=== PATIENT | female | born 1935 | race Two or more races ===

== ENCOUNTER 2019-09-16 16:55 | Inpatient (IN) | payer OTHER ==
[~2019-09-16] VITALS: Ht 157.5 cm; Wt 69.0 kg
[2019-09-16] MEDS ORDERED: SODIUM CHLORIDE 0.9% 500 ML IV ONE (17:24)
[2019-09-16] MEDS ORDERED: InsuLIN REG 1unit/0.01ml Soln (100units/ml) IV ONE (17:45)
[2019-09-16 17:51] LABS: Basophils # (auto) 0 10 ^3/uL (0-0.2); Basophils % (auto) 0.4 % (0.0-2.0); Eosinophils # (auto) 0 10 ^3/uL (0-0.8); Eosinophils % (auto) 0.1 % (0.0-7.0); Hematocrit 45.5 % (36.0-46.0); Hemoglobin 15.3 g/dL (12.2-16.2); Lymphocytes # (auto) 0.4 10 ^3/uL (0.4-5.4); Lymphocytes % (auto) 5.2 % (10.0-50.0); Mean Corpuscular Hemoglobin 32.2 pg (28.0-32.0); Mean Corpuscular Hgb Conc. 33.7 g/dL (32.0-36.0); Mean Corpuscular Volume 95.6 fL (80.0-100.0); Monocytes # (auto) 0.7 10 ^3/uL (0-1.3); Monocytes % (auto) 9.5 % (0.0-12.0); Neutrophils # (auto) 6.6 10 ^3/uL (1.6-8.6); Neutrophils % (auto) 84.8 % (37.0-80.0); Nucleated Red Blood Cells % 0.1 %; Platelet Count (auto) 242 10^3/uL (140-450); Red Blood Cells 4.76 10^6/uL (4.0-5.20); White Blood Cell 7.8 10^3/uL (4.4-10.8)
[2019-09-16 18:07] LABS: Albumin 2.5 g/dL (3.4-5.0); Anion Gap 7 (5-15); Blood Urea Nitrogen 29 mg/dL (7-18); Calcium 8.9 mg/dL (8.5-10.1); Carbon Dioxide 26 mmol/L (21-32); Chloride 96 mmol/L (98-107); Magnesium 2.2 mg/dL (1.6-2.6); Potassium 4.5 mmol/L (3.5-5.1); Sodium 129 mmol/L (136-145)
[2019-09-16 18:12] LABS: Alanine Aminotransferase 21 U/L (13-56); Aspartate Aminotransferase 20 U/L (15-37); BUN/Creatinine Ratio 26.6; Bilirubin, Total 0.9 mg/dL (0.2-1.0); GFR African American 61 mL/min; GFR Non-African American 51 mL/min; Total Protein 6.9 g/dL (6.4-8.2)
[2019-09-16 18:16] LABS: Alkaline Phosphatase 132 U/L (45-117)
[2019-09-16 18:34] LABS: Glucose 533 mg/dL (74-106)
[2019-09-16] MEDS ORDERED: DEXTROSE (50%) 50ML SYRG IV PRN (19:45)
[2019-09-16] MEDS ORDERED: NITROGLYCERIN 0.4 MG SL TAB SL PRN (19:45)
[2019-09-16] MEDS ORDERED: ACETAMINOPHEN 500 MG TAB PO PRN (19:45)
[2019-09-16] MEDS ORDERED: HYDROcodone-ACET 5/325MG TAB PO PRN (19:45)
[2019-09-16] MEDS ORDERED: MORPHINE SULF INJ 2 MG/ML SYRINGE 1ML IV PRN ×2 (19:45)
[2019-09-16] MEDS ORDERED: ONDANSETRON HCL 4 MG/2 ML VIAL IV PRN (19:45)
[2019-09-16 20:13] LABS: Cholesterol 91 mg/dL (< 200)
[2019-09-16 20:14] LABS: Urine WBC None Seen /hpf (0 - 5)
[2019-09-16 20:15] LABS: HDL Cholesterol 38 mg/dL (40-59); LDL Cholesterol 38 mg/dL (< 100); Triglycerides 103 mg/dL (< 150)
[2019-09-16] MEDS: SODIUM CHLORIDE 0.9% 1,000 ML IV SCH (20:18)
[2019-09-16] MEDS: cefTRIAXone 1GM/50ML D5W 50 ML IV SCH (20:18)
[2019-09-16 20:29] LABS: Urine Bacteria NONE SEEN /hpf (None Seen); Urine Blood Negative /uL (Negative); Urine Specific Gravity 1.032 (1.001-1.035)
[2019-09-16 21:15] VITALS: BP 150/90
[2019-09-16 22:00] VITALS: BP 150/91
[2019-09-16] MEDS ORDERED: ATORVASTATIN 20 MG TAB PO SCH (22:00)
[2019-09-16] MEDS: APIXABAN 2.5 MG TAB PO SCH (22:03)
[2019-09-16] MEDS: METOPROLOL TARTRATE 25 MG TAB PO SCH (22:03)
[2019-09-16] MEDS: AZITHROMYCIN 500MG/ 250ML 250 ML IV SCH (22:04)
[2019-09-16] MEDS: ACCU-CHEK COMFORT CURVE STRIP VI SCH (22:04)
[2019-09-16] MEDS: InsuLIN REG 1unit/0.01ml Soln (100units/ml) SC SCH (22:11)
[2019-09-16] MEDS ORDERED: LEVO100T8 PO (22:20)
[2019-09-16] MEDS ORDERED: ATOR40TA52 PO (22:20)
[2019-09-16] MEDS ORDERED: METO25TA93 PO (22:20)
[2019-09-16] MEDS ORDERED: APIX2.5T PO (22:20)
[2019-09-16] MEDS ORDERED: LOSA-39 PO (22:20)
[2019-09-16] MEDS ORDERED: AMLO5TAB15 PO (22:20)
[2019-09-16] MEDS ORDERED: FLEC50TA15 PO (22:20)
[2019-09-17 04:50] VITALS: BP 150/91
[2019-09-17 05:00] VITALS: BP 130/50
[2019-09-17] MEDS: SODIUM CHLORIDE 0.9% 1,000 ML IV SCH (05:45)
[2019-09-17 06:05] LABS: Basophils # (auto) 0 10 ^3/uL (0-0.2); Basophils % (auto) 0.5 % (0.0-2.0); Eosinophils # (auto) 0.1 10 ^3/uL (0-0.8); Eosinophils % (auto) 0.8 % (0.0-7.0); Hemoglobin 13.4 g/dL (12.2-16.2); Lymphocytes # (auto) 0.6 10 ^3/uL (0.4-5.4); Lymphocytes % (auto) 7.2 % (10.0-50.0); Mean Corpuscular Hemoglobin 32.5 pg (28.0-32.0); Mean Corpuscular Hgb Conc. 34.4 g/dL (32.0-36.0); Mean Corpuscular Volume 94.5 fL (80.0-100.0); Monocytes # (auto) 0.7 10 ^3/uL (0-1.3); Monocytes % (auto) 8.7 % (0.0-12.0); Neutrophils # (auto) 7.1 10 ^3/uL (1.6-8.6); Neutrophils % (auto) 82.8 % (37.0-80.0); Platelet Count (auto) 233 10^3/uL (140-450); Red Blood Cells 4.12 10^6/uL (4.0-5.20); Red Cell Distribution Width 12.7 % (11.8-14.3); White Blood Cell 8.6 10^3/uL (4.4-10.8)
[2019-09-17] MEDS: ACCU-CHEK COMFORT CURVE STRIP VI SCH ×2 (06:16→11:47)
[2019-09-17] MEDS: InsuLIN REG 1unit/0.01ml Soln (100units/ml) SC SCH ×2 (06:16→11:48)
[2019-09-17 06:25] LABS: BUN/Creatinine Ratio 22.4; Calcium 8.2 mg/dL (8.5-10.1); Potassium 3.7 mmol/L (3.5-5.1)
[2019-09-17] MEDS: IPRATROPIUM BROM 0.5 MG/2.5ML INH SOL NEB SCH ×2 (06:26→11:58)
[2019-09-17] MEDS: ALBUTEROL SULF 2.5 MG/0.5ML(0.5%) NEB SOLN NEB SCH ×2 (06:26→11:58)
[2019-09-17 08:50] VITALS: BP 142/67
[2019-09-17] MEDS: AZITHROMYCIN 500MG/ 250ML 250 ML IV SCH (09:54)
[2019-09-17] MEDS: APIXABAN 2.5 MG TAB PO SCH (09:54)
[2019-09-17] MEDS: cefTRIAXone 1GM/50ML D5W 50 ML IV SCH (09:54)
[2019-09-17] MEDS: METOPROLOL TARTRATE 25 MG TAB PO SCH (09:55)
[2019-09-17] MEDS ORDERED: FAMOTIDINE 20 MG TAB PO SCH (10:00)
[2019-09-17 13:00] VITALS: BP 129/52
[2019-09-17] MEDS ORDERED: DOXYCYCLINE 100 MG TAB/CAP PO SCH (13:00)
[2019-09-17] MEDS ORDERED: INSULIN LANTUS (GLARGINE) 1 /0.01ml (100units/ml) SC SCH (13:00)
[2019-09-17] MEDS ORDERED: INSU100I44 SC (13:05)
[2019-09-17] MEDS ORDERED: BLOO-200 XX (13:05)
[2019-09-17] MEDS ORDERED: ALBUAER3 IN (13:05)
[2019-09-17] MEDS ORDERED: INSU31MI32 XX (13:05)
[2019-09-17] MEDS ORDERED: IPRIH IN (13:05)
[2019-09-17] MEDS ORDERED: DOXY-346 PO ×2 (13:05→16:35)
[2019-09-17] MEDS ORDERED: INSUINJ37 SC (13:05)
[2019-09-17] MEDS ORDERED: ALCO1PAD XX (13:05)
[2019-09-17 14:32] VITALS: BP 138/77
== END 2019-09-17 16:30 | disposition home health service (06) | DRG 637 ==
LOC: ER 16:55 → EDBD 16:55 → TELE 16:56 → TELE-WESTW 21:07
PROVIDERS: ADMIT Nurse Practitioner Acute Care; ATTEND Internal Medicine
DX: E11.65 Type 2 diabetes mellitus with hyperglycemia (principal); J18.9 Pneumonia, unspecified organism; N17.0 Acute kidney failure with tubular necrosis; E87.1 Hypo-osmolality and hyponatremia; E03.9 Hypothyroidism, unspecified; E66.9 Obesity, unspecified; E87.8 Other disorders of electrolyte and fluid balance, not elsewhere classified; E86.0 Dehydration; I10 Essential (primary) hypertension; E78.5 Hyperlipidemia, unspecified; I48.91 Unspecified atrial fibrillation; Z86.73 Personal history of transient ischemic attack (TIA), and cerebral infarction without residual deficits; Z83.3 Family history of diabetes mellitus; Z79.01 Long term (current) use of anticoagulants; Z79.899 Other long term (current) drug therapy
CPT/HCPCS: 36415; 70450; 71045; 80048; 80053; 80061; 81001; 82962; 83036; 83735; 84443; 84484; 85025; 87040; 93005; 94640; 96361; 96374; G0378; J0696; J1815